=== PATIENT | female | born 1985 | race Caucasian/White ===

== ENCOUNTER → 2020-12-10 07:44 | Outpatient (CLI) | payer BC, SELFPAY ==
--- NOTE | ~2020-12-10 | US_ITS ---
EXAMINATION: US abdomen limited EXAM DATE: 12/10/2020 08:13 INDICATION: R10.11 - Right upper quadrant pain . TECHNIQUE: Multiple grayscale and Doppler images of the abdomen right upper quadrant were obtained (b y a technologist who performed the scan) and subsequently reviewed. There is no prior study for zara kc. FINDINGS: The pancreatic head and body are normal in appearance. The pancreatic tail is not visualized. There is heterogeneous echogenic liver parenchyma with poor penetration, hepatic steatosis. Some regions o f focal fatty sparing. There are no focal liver lesions identified. There is no evidence of intrahe patic biliary duct dilation. Portal venous flow was seen in the hepatopedal, normal direction and hendrickson s normal Doppler waveform. No right-sided hydronephrosis. Common bile duct measures 3 mm, which is normal. The gallbladder wall is normal in thickness, with ex pected amount of distention. No sonographic evidence of pericholecystic fluid. There is a 6 mm poly p. This is most likely a benign finding but could obtain 6-12 month follow-up ultrasound. Technologi st performing exam reports patient did not demonstrate sonographic Maurer's sign. Please note that t his sign is less reliable in patients who have received pain medication. IMPRESSION: 1. Small gallbladder polyp, most likely benign; consider 6-12 month follow-up sonogram. 2. Hepatic steatosis, focal fatty sparing. Reviewed, dictated and finalized at location B. 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
== END ==
PROVIDERS: PCP Family Medicine; Visit Provider Family Medicine
DX: R10.11 Right upper quadrant pain (principal); K82.4 Cholesterolosis of gallbladder; K76.0 Fatty (change of) liver, not elsewhere classified
CPT/HCPCS: 76705

== ENCOUNTER 2021-06-06 08:05 | Outpatient (CLI) | payer BC, SELFPAY ==
--- NOTE | ~2021-06-06 | NM_ITS ---
EXAMINATION: NM hepatobiliary wo pharm EXAM DATE: 06/06/2021 10:26 INDICATION: R10.13 - Epigastric pain . TECHNIQUE: 4.7 mCi Tc-99m mebrofenin (Choletec) was administered intravenously. Scintigraphic images of the abdomen were obtained for one hour. To obtained gallbladder ejection fraction, patient drank 8 ounces of Ensure and imaging of the gallbladder obtained for one hour following ingestion. Gallbl adder ejection fraction was calculated by the technologist. Correlation is made to ultrasound from [facility]. FINDINGS: There is normal clearance of radiotracer from the blood pool. There is homogeneous tracer u ptake by the liver. Activity progresses to the gallbladder and bowel. The gallbladder ejection fract ion (GBEF) is 61% (most patients with gallbladder dysfunction have GBEF < 35%, but there is slight ov erlap with the normal range of 33-90% using this protocol).] IMPRESSION: Gallbladder ejection fraction 61%, within normal range. Reviewed, dictated and finalized at location B.
== END 2021-06-06 08:06 | disposition home or self-care (01) ==
LOC: ANHIMG 08:08
PROVIDERS: PCP Family Medicine; Visit Provider Internal Medicine Gastroenterology
DX: R10.13 Epigastric pain (principal)
CPT/HCPCS: 78226; A9537

== ENCOUNTER 2021-07-28 02:50 | Day surgery (SDC) | payer OTHER, SELFPAY ==
[2021-07-10 10:25] VITALS: BMI 33.0
--- NOTE | 2021-07-25 15:22 | PM.HPGS ---
History of Present Illness History of Present Illness Consent: Risks, benefits, and alternatives have been discussed and questions answered. Patient agrees to proceed with procedure. Chief complaint: GERD, epigastric pain Narrative: Slime Tay is a 36 year old female With epigastric pain. She gets a knot like pain. She also has heartburn for which he takes omeprazole. The omeprazole however has not helped her epigastric pain. Ultrasound of the right upper quadrant was unremarkable. HIDA scan was normal. She still gets pains that began in the right lower chest that radiates straight through to the back. Is also troubled by great deal of bloating that gets worse as the day progresses, but does not have a great deal of belching Review of Systems Review of Systems: All systems reviewed & are unremarkable except as noted in HPI and below PMFSH Past Medical History Medical History [place] Depression with anxiety Dyslipidemia Essential (primary) hypertension GERD without esophagitis Migraine, unspecified, intractable, without status migrainosus Family History Family History Mother Hypertension Father Hypertension Social History Social History Smoking status: Current some day smoker Tobacco type: cigarettes Second hand tobacco smoke exposure: Yes Smoking end date: 07/02/21 Alcohol intake: current Drinks per week: 2 Substance use: never Substance use type: does not use Living arrangements: with family Spiritual care concerns: No Meds Home Medications and Allergies Home Medications Medication Instructions Recorded Confirmed Type propranolol 160 mg capsule,24 160 mg PO DAILY #90 cap 04/08/21 07/28/21 Rx hr,extended release hydrochlorothiazide 25 mg tablet 25 mg PO DAILY #90 tablet 06/26/21 07/28/21 Rx omeprazole 40 mg capsule,delayed 40 mg PO DAILY #90 cap 07/04/21 07/28/21 Rx release atorvastatin 10 mg tablet 10 mg PO QPM #90 tablet 07/16/21 07/28/21 Rx Allergies Allergy/AdvReac Type Severity Reaction Status Date / Time Sulfa (Sulfonamide Allergy Intermediate rash Verified 07/28/21 07:48 Antibiotics) aspirin Allergy Mild unknown Verified 07/28/21 07:48 ibuprofen Allergy Mild unknown Verified 07/28/21 07:48 ketorolac Allergy Mild unknown Verified 07/28/21 07:48 naproxen Allergy Mild unknown Verified 07/28/21 07:48 Exam Const: General: alert Orientation/consciousness: patient oriented x3 Resp: Auscultation: clear to auscultation bilaterally Cardio: Rhythm: regular rhythm GI: GI Palp: Yes Soft to palpation and No Tenderness to palpation present (GI) Neuro: General: patient oriented x3 Assessment and Plan Assessment and plan (1) Epigastric pain: Code(s): R10.13 - Epigastric pain Status: Acute Assessment and Plan: EGD with possible biopsy or dilatation or cautery.
[2021-07-28 07:49] VITALS: BP 124/90; PULSE 69; RESP 17; TEMP 36.6; O2SAT 100; BMI 33.5
[2021-07-28] MEDS: LACTATED RINGERS 1,000 ML 150 ML IV CONT (07:52)
--- NOTE | 2021-07-28 08:21 | P.PNAN_ITS ---
Anes - Initial Pre Proc Eval Procedure: Operation Date: 07/28/21 08:30 Proposed Procedures p Esophagogastroduodenoscopy - Kumar Winston MD Date/Time: 07/28/21 08:21 Surgeon: Kumar Winston MD Pre Op Diagnosis: GERD, epigastric pain Patient Data Age: 36 Gender: F Height: 1.7 m Weight: 97.1 kg Last Vital Signs Temp 98 F 07/28/21 07:49 Pulse 69 07/28/21 07:49 Resp 17 07/28/21 07:49 BP 124/90 07/28/21 07:49 Pulse Ox 100 07/28/21 07:49 Allergies Allergy/AdvReac Type Severity Reaction Status Date / Time Sulfa (Sulfonamide Allergy Intermediate rash Verified 07/28/21 07:48 Antibiotics) aspirin Allergy Mild unknown Verified 07/28/21 07:48 ibuprofen Allergy Mild unknown Verified 07/28/21 07:48 ketorolac Allergy Mild unknown Verified 07/28/21 07:48 naproxen Allergy Mild unknown Verified 07/28/21 07:48 Home Medications Medication Instructions Recorded Confirmed Type propranolol 160 mg capsule,24 160 mg PO DAILY #90 cap 04/08/21 07/28/21 Rx hr,extended release hydrochlorothiazide 25 mg tablet 25 mg PO DAILY #90 tablet 06/26/21 07/28/21 Rx omeprazole 40 mg capsule,delayed 40 mg PO DAILY #90 cap 07/04/21 07/28/21 Rx release atorvastatin 10 mg tablet 10 mg PO QPM #90 tablet 07/16/21 07/28/21 Rx Patient hx anesthesia problems: none Family hx anesthesia problems: none Results Review: All pre-operative results and documents have been reviewed as part of the pre-operative evaluation. [facility] Past Medical History Medical History [place] Depression with anxiety Dyslipidemia Essential (primary) hypertension GERD without esophagitis Migraine, unspecified, intractable, without status migrainosus Family History Family History Mother Hypertension Father Hypertension Social History Social History Smoking status: Current some day smoker Tobacco type: cigarettes Second hand tobacco smoke exposure: Yes Smoking end date: 07/02/21 Alcohol intake: current Drinks per week: 2 Substance use: never Substance use type: does not use Living arrangements: with family Spiritual care concerns: No Anes - Eval Final PreProcedure Day of Procedure 07/28/21 08:21 Patient weight: obese Heart: regular rate and rhythm Lungs: clear to auscultation Airway: Mallampati scale class III Neurological: alert and oriented Last oral intake: >/= 8 hours ASA classification: III Emergent: no Anesthetic plan: proceed Anesthesia type and monitoring: general GIVS and standard monitoring Results Review: All pre-operative results and documents have been reviewed as part of the pre-operative evaluation. Informed Consent: The patient's anesthetic plan and its attendant risks and benefits were discussed with the patient/family/POA. Questions were solicited and answers provided to the satisfaction of the patient/family/POA.
[2021-07-28 08:51] VITALS: BP 128/99; PULSE 79; RESP 19; O2SAT 100
[2021-07-28 09:01] VITALS: BP 144/89; PULSE 64; RESP 19; O2SAT 100
[2021-07-28 09:11] VITALS: BP 127/90; PULSE 52; RESP 19; O2SAT 100
== END 2021-07-28 09:24 | disposition home or self-care (01) ==
PROVIDERS: PCP Family Medicine; Visit Provider Internal Medicine Gastroenterology
PROC: 0DJ08ZZ Inspection of Upper Intestinal Tract, Via Natural or Artificial Opening Endoscopic (ICD-10-PCS; CPT 43235; principal; 2021-07-28 08:30)
DX: R10.13 Epigastric pain (principal); K21.9 Gastro-esophageal reflux disease without esophagitis; Z79.82 Long term (current) use of aspirin; F41.8 Other specified anxiety disorders; E78.5 Hyperlipidemia, unspecified; I10 Essential (primary) hypertension; F17.210 Nicotine dependence, cigarettes, uncomplicated; E66.9 Obesity, unspecified; Z68.33 Body mass index [BMI] 33.0-33.9, adult
CPT/HCPCS: 43239; 88305; J2001; J2704; J7120